=== PATIENT | male | born 1980 | race Hispanic/Latino ===

== ENCOUNTER 2018-04-14 17:25 | Emergency (ER) | payer SELFPAY ==
[2018-04-14] MEDS ORDERED: FENTANYL CITR 100 MCG/2 ML ONE (17:45)
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
[2018-04-14] MEDS ORDERED: IBUPROFEN 400 MG TAB ONE (21:32)
[2018-04-14] MEDS ORDERED: IBUPROFEN 200 MG TAB PO ONE (21:32)
[2018-04-14] MEDS ORDERED: CYCLOBENZAPRINE 10 MG TAB ONE (21:32)
[2018-04-14 21:38] VITALS: TEMP 99.2
[2018-04-14 21:41] VITALS: BP 131/87; O2SAT 97
== END 2018-04-14 21:34 | disposition home or self-care (01) ==
LOC: ER 17:25
DX: S16.1XXA Strain of muscle, fascia and tendon at neck level, initial encounter (principal); M25.521 Pain in right elbow; E11.9 Type 2 diabetes mellitus without complications; F17.200 Nicotine dependence, unspecified, uncomplicated; V49.40XA Driver injured in collision with unspecified motor vehicles in traffic accident, initial encounter; Y93.89 Activity, other specified; Y92.89 Other specified places as the place of occurrence of the external cause; Y99.8 Other external cause status
CPT/HCPCS: 72050; 96372; 99284; J3010

== ENCOUNTER 2018-06-14 05:23 | Emergency (ER) | payer SELFPAY ==
[2018-06-14 06:14] LABS: Absolute Lymphocytes (CBC) 0.9 K/uL (0.7-4.9); Absolute Monocytes 1.1 K/uL (0.1-1.3); Absolute Neutrophil 14.3 K/uL (1.8-8.0); Basophils % 0.2 % (0-1.3); Eosinophils % 0.2 % (0-4.4); Lymphocytes % 5.6 % (15.3-44.8); MCH 32.3 pg (27.0-35.0); MCV 93.9 fL (80-100); MPV 8.1 fL (7.6-11.3); Monocytes % 6.8 % (3.3-12.3)
[2018-06-14 06:22] LABS: Potassium 3.9 mmol/L (3.5-5.1)
[2018-06-14] MEDS ORDERED: HYDROCODONE/APAP 5/325 MG TAB ONE (06:58)
--- NOTE | 2018-06-14 07:48 | RAD REPORT ---
EXAM DESCRIPTION: RAD - Elbow Right 3 View - 06/14/2018 5:52 am CLINICAL HISTORY: Right elbow pain FINDINGS: No fracture or dislocation is seen
[2018-06-14 08:12] LABS: Urine Blood 1+ (NEG); Urine Glucose 2+ (NEG); Urine Protein NEGATIVE (NEG); Urine Specific Gravity <1.005 (1.005-1.030); Urine pH 5.5 (5.0-7.0)
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
[2018-06-14 09:56] LABS: Blood Morphology Comment NOT SEEN (NOT SEEN); Platelet Estimate ADEQ; Toxic Granulation 1+; Urine White Blood Cell Casts OK
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
[2018-06-14 10:16] VITALS: TEMP 97.8
[2018-06-14 10:21] VITALS: BP 118/73; O2SAT 96
== END 2018-06-14 10:08 | disposition home or self-care (01) ==
LOC: ER 05:23
DX: R07.9 Chest pain, unspecified (principal); M25.521 Pain in right elbow; M79.631 Pain in right forearm; Y04.2XXA Assault by strike against or bumped into by another person, initial encounter; Y93.89 Activity, other specified; Y92.9 Unspecified place or not applicable; E11.9 Type 2 diabetes mellitus without complications
CPT/HCPCS: 36415; 70450; 71260; 72125; 74177; 80048; 81003; 85025; 86850; 86900; 86901; 99285; Q9967